=== PATIENT | female | born 1995 | race African-American/Black ===

== ENCOUNTER 2017-08-03 20:07 | Emergency (ER) | payer OTHER ==
[2017-08-03 20:15] VITALS: BP 115/69
--- NOTE | 2017-08-03 20:48 | ER Document Report ---
ED General - General Chief Complaint: Shortness Of Breath Stated Complaint: SHORTNESS OF BREATH Time Seen by Provider: 08/03/17 20:33 Notes: Patient is a 21-year-old female, at 29 weeks gestation by first trimester ultrasound, the comes emergency department for chief complaint of intermittent shortness of breath for the past month. She states that she notices it more when lying down, sometimes while she is walking. She denies fever, chills, cough, congestion, lower extremity swelling, she states her aunt had a blood clot after his surgery but patient denies personal or first-degree family member blood clot history. She does not smoke. Patient denies chest pain, she denies any current symptoms. - Related Data Allergies/Adverse Reactions: No Known Allergies Allergy (Verified 08/03/17 20:38) Past Medical History - General Information source: Patient - Social History Smoking Status: Never Smoker Chew tobacco use (# tins/day): No Frequency of alcohol use: None Drug Abuse: None Lives with: Family Family History: Reviewed & Not Pertinent Patient has suicidal ideation: No Patient has homicidal ideation: No - Medical History Medical History: Negative Renal/ Medical History: Denies: Hx Peritoneal Dialysis Surgical Hx: Negative - Immunizations Immunizations up to date: Yes Hx Diphtheria, Pertussis, Tetanus Vaccination: Yes Review of Systems - Review of Systems Constitutional: No symptoms reported EENT: No symptoms reported Cardiovascular: See HPI Respiratory: See HPI Gastrointestinal: No symptoms reported Genitourinary: No symptoms reported Female Genitourinary: No symptoms reported Musculoskeletal: No symptoms reported Skin: No symptoms reported Hematologic/Lymphatic: No symptoms reported Neurological/Psychological: No symptoms reported Physical Exam - Vital signs Vitals: Temp Pulse Resp BP Pulse Ox 98.5 F 86 16 115/69 100 08/03/17 20:14 08/03/17 20:14 08/03/17 20:14 08/03/17 20:14 08/03/17 20:14 Interpretation: Normal - General General appearance: Appears well, Alert In distress: None - Alert, conversational, well-appearing - HEENT Head: Normocephalic, Atraumatic Eyes: Normal Conjunctiva: Normal Extraocular movements intact: Yes Eyelashes: Normal Pupils: PERRL Nasal: Normal Mouth/Lips: Normal Mucous membranes: Normal Pharynx: Normal Neck: Normal - Respiratory Respiratory status: No respiratory distress Chest status: Nontender Breath sounds: Normal. No: Decreased air movement, Wheezing Chest palpation: Normal - Cardiovascular Rhythm: Regular. No: Tachycardia Heart sounds: Normal auscultation, S1 appreciated, S2 appreciated Murmur: No - Abdominal Inspection: Gravid female Distension: No distension Bowel sounds: Normal Tenderness: Nontender. No: Tender, Guarding - Back Back: Normal, Nontender. No: Tender - Extremities General upper extremity: Normal inspection, Nontender, Normal ROM, Normal strength General lower extremity: Normal inspection, Nontender, Normal ROM, Normal strength - Neurological Neuro grossly intact: Yes Cognition: Normal Orientation: AAOx4 [place] Coma Scale Eye Opening: Spontaneous [place] Coma Scale Verbal: Oriented [place] Coma Scale Motor: Obeys Commands [place] Coma Scale Total: 15 Speech: Normal Motor strength normal: LUE, RUE, LLE, RLE Sensory: Normal - Psychological Associated symptoms: Normal affect, Normal mood - Skin Skin Temperature: Warm Skin Moisture: Dry Skin Color: Normal Course - Re-evaluation Re-evalutation: Patient is visiting from out of town, she is from [place], however she has no tachycardia, tachypnea, no chest pain, symptoms have been going on for 1 month, she is third trimester , she does not smoke, and she does not currently have any symptoms. Despite risk factors of and traveling from [place], her symptoms began before travel, and with long duration of symptoms, no current symptoms, normal vital signs, and lack of other risk factors I still have very low suspicion of pulmonary embolism. EKG sinus rhythm with no noted abnormalities. CBC shows mild anemia, mild leukocytosis, chemistry unremarkable. Urinalysis indicates urinary tract infection. On reexamination patient is asymptomatic. Because of no current symptoms and the above noted situation I have low suspicion of pulmonary embolisms. No evidence of pneumothorax, pneumonia, or ACS. I discussed results with patient. Most likely physiologic, this is patient's first . Discussed results in detail, after discussion patient will be treated with antibiotics for UTI. Discussed follow-up and return precautions with patient and mother state understanding and agreement. - Vital Signs Vital signs: Temp Pulse Resp BP Pulse Ox 98.5 F 86 16 115/69 100 08/03/17 20:14 08/03/17 20:14 08/03/17 20:14 08/03/17 20:14 08/03/17 20:14 - Laboratory Result Diagrams: 08/03/17 21:15 08/03/17 21:15 Laboratory results interpreted by me: 08/03/17 08/03/17 21:09 21:15 WBC 12.2 H RBC 3.08 L Hgb 10.2 L Hct 28.6 L Seg Neutrophils % 78.2 H Lymphocytes % 12.4 L Absolute Neutrophils 9.6 H Ur Leukocyte Esterase LARGE H Urine Ascorbic Acid 40 H Discharge - Discharge Clinical Impression: Shortness of breath Condition: Stable Disposition: HOME, SELF-CARE Additional Instructions: Your workup shows mild anemia, evidence of urinary tract infection, but otherwise no concerning abnormalities. Symptoms are most likely physiologic related to although this is not certain at this time. Follow-up with your [facility]. Take the antibiotic as prescribed. Continue to stay hydrated. Return if you develop any concerning symptoms including chest pain, shortness of breath returns and continues, fever, or any other concerning symptoms. Prescriptions: Cephalexin Monohydrate [Keflex 500 mg Capsule] 500 mg PO BID #10 capsule
[2017-08-03 21:21] LABS: APPEARANCE,URINE SLIGHTLY-CLOUDY; BILIRUBIN,URINE NEGATIVE (NEGATIVE); GLUCOSE, URINE NEGATIVE (NEGATIVE); KETONES,URINE NEGATIVE (NEGATIVE); LEUKOCYTE ESTERASE,URINE LARGE (NEGATIVE); NITRITE,URINE NEGATIVE (NEGATIVE); PROTEIN,URINE NEGATIVE (NEGATIVE); URINE SPECIFIC GRAVITY 1.004; UROBILINOGEN,URINE NEGATIVE mg/dL (<2.0)
[2017-08-03 21:25] LABS: ABSOLUTE EOSINOPHILS # (AUTO) 0.1 10^3/uL (0.0-0.6); ABSOLUTE LYMPHOCYTES (AUTO) 1.5 10^3/uL (0.5-4.7); ABSOLUTE NEUT (AUTO) 9.6 10^3/uL (1.7-8.2); BASOPHILS % (AUTO) 0.4 % (0-2); EOSINOPHILS % (AUTO) 0.4 % (0-6); HEMATOCRIT 28.6 % (36.0-47.0); HEMOGLOBIN 10.2 g/dL (12.0-15.5); LYMPHOCYTES % (AUTO) 12.4 % (13-45); MEAN CORPUSCULAR HEMOGLOBIN 33.1 pg (27.0-33.4); MEAN CORPUSCULAR HGB CONC 35.6 g/dL (32.0-36.0); MEAN CORPUSCULAR VOLUME 93 fl (80-97); MONOCYTES % (AUTO) 8.6 % (3-13); RED BLOOD COUNT 3.08 10^6/uL (3.72-5.28); RED CELL DISTRIBUTION WIDTH 12.5 % (11.5-14.0); SEGMENTED NEUTROPHILS % (AUTO) 78.2 % (42-78); WHITE BLOOD COUNT 12.2 10^3/uL (4.0-10.5)
[2017-08-03 21:41] LABS: ANION GAP 9 (5-19); BLOOD UREA NITROGEN 8 mg/dL (7-20); CALCIUM 9.5 mg/dL (8.4-10.2); CARBON DIOXIDE 22 mmol/L (22-30); CHLORIDE 106 mmol/L (98-107); CREATININE RESULT 0.73 mg/dL (0.52-1.25); GLUCOSE 76 mg/dL (75-110); POTASSIUM 3.9 mmol/L (3.6-5.0)
[2017-08-03] MEDS ORDERED: CEPHALEXIN 500 MG CAPSULE PO ONE (21:55)
--- NOTE | 2017-08-04 07:50 | EKG REPORT ---
SEVERITY:- NORMAL ECG - SINUS RHYTHM : Confirmed by: Timothy Capellan MD 04-Aug-2017 07:49:31
== END 2017-08-03 22:22 | disposition home or self-care (01) ==
LOC: ER 20:07
DX: O26.893 Other specified pregnancy related conditions, third trimester (principal); R06.02 Shortness of breath; O23.43 Unspecified infection of urinary tract in pregnancy, third trimester; O99.013 Anemia complicating pregnancy, third trimester; Z3A.22 22 weeks gestation of pregnancy
CPT/HCPCS: 36415; 80048; 81001; 85025; 93005; 93010; 99285